=== PATIENT | female | born 1990 | race American Indian/Alaskan Native ===

== ENCOUNTER 2018-11-09 16:57 | Emergency (ER) | payer MEDICAID, OTHER ==
[2018-11-09 17:15] VITALS: BP 109/70
--- NOTE | 2018-11-09 17:45 | Emergency Department Report ---
Blank Doc - Documentation Documentation: 28 y/o female with 3 weeks of abd pain located left lower and pelvic. No n/v/d. Admits to constipation. LMP 11/02/18. .
[2018-11-09 18:05] LABS: Basophils % (Auto) 0.6 % (0.0-1.8); Eosinophils # (Auto) 0.1 K/mm3 (0.0-0.4); Eosinophils % (Auto) 2.3 % (0.0-4.3); Hematocrit 46.2 % (30.3-42.9); Hemoglobin 15.5 gm/dl (10.1-14.3); Lymphocytes # (Auto) 1.7 K/mm3 (1.2-5.4); Lymphocytes % (Auto) 35.3 % (13.4-35.0); Mean Corpuscular HGB Conc 34 % (30-34); Mean Corpuscular Volume 88 fl (79-97); Monocytes # (Auto) 0.5 K/mm3 (0.0-0.8); Monocytes % (Auto) 9.6 % (0.0-7.3); Platelet Count 314 K/mm3 (140-440); Red Blood Count 5.26 M/mm3 (3.65-5.03); Red Cell Distribution Width 13.1 % (13.2-15.2)
[2018-11-09 18:12] LABS: Bilirubin,Urine NEG (Negative); Blood,Urine NEG (Negative); Color,Urine Yellow (Yellow); Mucus,Urine 3+ /HPF; Protein,Urine <15 mg/dL mg/dL (Negative); Urobilinogen,Urine < 2.0 mg/dL (<2.0)
[2018-11-09 18:22] LABS: Alanine Aminotransferase 8 units/L (7-56); Albumin 3.9 g/dL (3.9-5); BUN/Creatinine Ratio 20; Blood Urea Nitrogen 14 mg/dL (7-17); Hemolysis Index 29
[2018-11-09] MEDS ORDERED: NACL 0.9% 1000 ML 1,000 ML IV ONE (19:57)
[2018-11-09] MEDS ORDERED: TORADOL IV ONE (19:57)
[2018-11-09] MEDS ORDERED: ZOFRAN IV ONE (19:57)
--- NOTE | 2018-11-09 21:23 | Emergency Department Report ---
ED Abdominal Pain HPI - General Chief Complaint: Abdominal Pain Stated Complaint: ABD PAIN Time Seen by Provider: 11/09/18 17:29 Source: patient Mode of arrival: Ambulatory Limitations: No Limitations - History of Present Illness Initial Comments: Patient is a 28-year-old -[place] female who presents for generalized abdominal pain 3 weeks last menstrual cycle was 11/02/2018 patient is A0 patient is currently breast-feeding patient has history of ovarian cyst patient describes pain as 4/10 aching, patient has vaginal bleeding at this time no vaginal discharge no shortness of breath, pt postive for nausea,, no vomiting MD Complaint: abdominal pain Onset/Timin -: week(s) Location: LLQ, RLQ Radiation: LLQ, RLQ Severity: moderate Severity scale (0 -10): 2 Quality: aching Consistency: constant Improves With: nothing Worsens With: movement Associated Symptoms: nausea - Related Data LMP Date: 11/02/18 Previous Rx's Medication Instructions Recorded Last Taken Type Docusate Sodium [Colace] 100 mg PO BID PRN #20 capsule 05/03/16 Unknown Rx Docusate Sodium [Colace] 100 mg PO BID PRN #60 capsule 12/08/16 Unknown Rx Ferrous Sulfate [Feosol 325 MG tab] 325 mg PO BID #90 tablet 12/08/16 Unknown Rx Ibuprofen [Motrin 800 MG tab] 800 mg PO Q8HR PRN #30 tablet 12/08/16 Unknown Rx Allergies Allergy/AdvReac Type Severity Reaction Status Date / Time No Known Allergies Allergy Verified 11/09/18 17:00 ED Review of Systems ROS: Stated complaint: ABD PAIN Other details as noted in HPI Constitutional: denies: chills, fever Eyes: denies: eye pain, eye discharge, vision change ENT: denies: ear pain, throat pain Respiratory: denies: cough, shortness of breath, wheezing Cardiovascular: denies: chest pain, palpitations Endocrine: no symptoms reported Gastrointestinal: abdominal pain, nausea. denies: diarrhea Genitourinary: denies: urgency, dysuria, frequency, hematuria, discharge Musculoskeletal: denies: back pain Skin: denies: rash, lesions Neurological: denies: headache, weakness, paresthesias Psychiatric: denies: anxiety, depression Hematological/Lymphatic: denies: easy bleeding, easy bruising ED Past Medical Hx - Past Medical History Previous Medical History?: No Hx Hypertension: No Hx Congestive Heart Failure: No Hx Diabetes: No Hx Deep Vein Thrombosis: No Hx Renal Disease: No Hx Sickle Cell Disease: No Hx Seizures: No Hx Asthma: Yes Hx COPD: No Hx HIV: No Additional medical history: 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, now resolved; no DM - Surgical History Past Surgical History?: No - Social History Smoking Status: Never Smoker - Medications Home Medications: Home Medications Medication Instructions Recorded Confirmed Last Taken Type Docusate Sodium [Colace] 100 mg PO BID PRN #20 capsule 05/03/16 12/08/16 Unknown Rx Docusate Sodium [Colace] 100 mg PO BID PRN #60 capsule 12/08/16 Unknown Rx Ferrous Sulfate [Feosol 325 MG tab] 325 mg PO BID #90 tablet 12/08/16 Unknown Rx Ibuprofen [Motrin 800 MG tab] 800 mg PO Q8HR PRN #30 tablet 12/08/16 Unknown Rx ED Physical Exam - General Limitations: No Limitations General appearance: alert, in no apparent distress - Head Head exam: Present: atraumatic, normocephalic - Eye Eye exam: Present: normal appearance, PERRL, EOMI - ENT ENT exam: Present: mucous membranes moist - Neck Neck exam: Present: normal inspection, full ROM - Respiratory Respiratory exam: Present: normal lung sounds bilaterally. Absent: respiratory distress, wheezes, stridor, chest wall tenderness - Cardiovascular Cardiovascular Exam: Present: regular rate, normal rhythm, normal heart sounds. Absent: systolic murmur, diastolic murmur, rubs, gallop - GI/Abdominal GI/Abdominal exam: Present: tenderness (LLQ, RLQ ), normal bowel sounds. Absent: guarding, rebound, rigid, bruit, hernia - Rectal Rectal exam: Present: deferred - Extremities Exam Extremities exam: Present: normal inspection, full ROM - Back Exam Back exam: Present: normal inspection, full ROM. Absent: tenderness, CVA tenderness (R), CVA tenderness (L), muscle spasm, rash noted - Neurological Exam Neurological exam: Present: alert, oriented X3, CN II-XII intact, normal gait - Psychiatric Psychiatric exam: Present: normal affect, normal mood - Skin Skin exam: Present: warm, dry, intact, normal color. Absent: rash ED Course Vital Signs 11/09/18 17:14 Temperature 98.4 F Pulse Rate 85 Respiratory 18 Rate Blood Pressure 109/70 O2 Sat by Pulse 99 Oximetry ED Medical Decision Making - Lab Data Result diagrams: 11/09/18 17:49 11/09/18 17:49 Labs 11/09/18 11/09/18 11/09/18 17:49 17:49 Unknown WBC 4.7 RBC 5.26 H Hgb 15.5 H Hct 46.2 H MCV 88 MCH 29 MCHC 34 RDW 13.1 L Plt Count 314 Lymph % (Auto) 35.3 H [place] % (Auto) 9.6 H Eos % (Auto) 2.3 Baso % (Auto) 0.6 Lymph # 1.7 [place] # 0.5 Eos # 0.1 Baso # 0.0 Seg Neutrophils % 52.2 Seg Neutrophils # 2.5 Sodium 144 Potassium 4.9 Chloride 108.9 H Carbon Dioxide 25 Anion Gap 15 BUN 14 Creatinine 0.7 Estimated GFR > 60 BUN/Creatinine Ratio 20 Glucose 78 Calcium 10.0 Total Bilirubin 0.30 AST 20 ALT 8 Alkaline Phosphatase 256 H Total Protein 7.2 Albumin 3.9 Albumin/Globulin Ratio 1.2 Urine Color Yellow Urine Turbidity Clear Urine pH 6.0 Ur Specific [place] 1.028 Urine Protein <15 mg/dl Urine Glucose (UA) Neg Urine Ketones 80 Urine Blood Neg Urine Nitrite Neg Urine Bilirubin Neg Urine Urobilinogen < 2.0 Ur Leukocyte Esterase Tr Urine WBC (Auto) 1.0 Urine RBC (Auto) 4.0 U Epithel Cells (Auto) 1.0 Urine Mucus 3+ hcg is negative - Medical Decision Making pt is currently tolerating po intake, there is no fever on chills no vaginal bleeding no discharge, pt refuses labs, ua: normal, HCG: negative, ct abd & pelvis- pt refuses. pt appears well nontoxic with nad, pt has eloped at this time , pt paged overhead x 3 no answer, called no answer unable to leave message, disposition is undetermined at this time. Critical care attestation.: If time is entered above; I have spent that time in minutes in the direct care of this critically ill patient, excluding procedure time. ED Disposition Clinical Impression: Abdominal pain Qualifiers: Abdominal location: lower abdomen, unspecified Qualified Code(s): R10.30 - Lower abdominal pain, unspecified Disposition: ELOPED Is pt being admited?: No Does the pt Need Aspirin: No Condition: Undetermined Instructions: Abdominal Pain (ED) Referrals: TABITHA PHAM MD [Staff Physician] - 3-5 Days Time of Disposition: 22:15
[2018-11-09 21:43] LABS: HCG Qualitative,Urine Negative (Negative)
== END 2018-11-09 22:06 | disposition left against medical advice (07) ==
LOC: ED 16:57
DX: R10.32 Left lower quadrant pain (principal); R10.31 Right lower quadrant pain; J45.909 Unspecified asthma, uncomplicated
CPT/HCPCS: 36415; 80053; 81001; 81025; 85025; 99283; J7030; J1885; J2405

== ENCOUNTER 2019-06-17 23:02 | Emergency (ER) | payer MEDICAID, OTHER ==
[2019-06-17 23:10] VITALS: BP 108/53
--- NOTE | 2019-06-18 02:45 | Emergency Department Report ---
ED General Adult HPI - General Chief complaint: Sore Throat Stated complaint: LUMP IN THROAT Source: patient Mode of arrival: Ambulatory Limitations: No Limitations - History of Present Illness Initial comments: Patient is a 28-year-old -[place] female with no past medical history who presents to the ED with acute onset persistent sore throat with swollen painful cervical lymph nodes for the last 2 days. Patient states that in the last 6 hours she has not been able to swallow much because of severe pain. Patient denies fever, chills, cough, nausea and vomiting, nasal and sinus congestion, dizziness, dysphagia, dysphonia, change in vision or chest pain and abdominal pain. MD Complaint: sore throat; painful swollen lymph cervical nodes -: Sudden, days(s) (2) Location: mouth Radiation: non-radiation Severity scale (0 -10): 4 Quality: aching Consistency: constant Improves with: none Worsens with: none Associated Symptoms: denies other symptoms. denies: confusion, chest pain, cough, diaphoresis, fever/chills, headaches, loss of appetite, malaise, nausea/vomiting, shortness of breath, syncope, weakness, other Treatments Prior to Arrival: none - Related Data Previous Rx's Medication Instructions Recorded Last Taken Type Docusate Sodium [Colace] 100 mg PO BID PRN #20 capsule 05/03/16 Unknown Rx Docusate Sodium [Colace] 100 mg PO BID PRN #60 capsule 12/08/16 Unknown Rx Ferrous Sulfate [Feosol 325 MG tab] 325 mg PO BID #90 tablet 12/08/16 Unknown Rx Ibuprofen [Motrin 800 MG tab] 800 mg PO Q8HR PRN #30 tablet 12/08/16 Unknown Rx Azithromycin [Zithromax Z-MAYA] 250 mg PO DAILY #6 tablet 06/18/19 Unknown Rx Ibuprofen [Motrin] 600 mg PO Q8H PRN #20 tablet 06/18/19 Unknown Rx Lidocaine Viscous 2% 10 ml PO Q6H PRN #120 ml 06/18/19 Unknown Rx methylPREDNISolone [Medrol 4MG 4 mg PO DAILY #21 tab.ds.pk 06/18/19 Unknown Rx DOSEPAK (21 tabs)] Allergies Allergy/AdvReac Type Severity Reaction Status Date / Time No Known Allergies Allergy Verified 11/09/18 17:00 ED Review of Systems ROS: Stated complaint: LUMP IN THROAT Other details as noted in HPI Constitutional: denies: chills, fever Eyes: denies: eye pain, eye discharge, vision change ENT: throat pain. denies: ear pain Respiratory: denies: cough, shortness of breath, wheezing Cardiovascular: denies: chest pain, palpitations Endocrine: no symptoms reported Gastrointestinal: denies: abdominal pain, nausea, diarrhea Genitourinary: denies: urgency, dysuria, discharge Musculoskeletal: denies: back pain, joint swelling, arthralgia Skin: denies: rash, lesions Neurological: denies: headache, weakness, paresthesias Psychiatric: denies: anxiety, depression Hematological/Lymphatic: denies: easy bleeding, easy bruising ED Past Medical Hx - Past Medical History Previous Medical History?: Yes Hx Hypertension: No Hx Congestive Heart Failure: No Hx Diabetes: No Hx Deep Vein Thrombosis: No Hx Renal Disease: No Hx Sickle Cell Disease: No Hx Seizures: No Hx Asthma: Yes Hx COPD: No Hx HIV: No Additional medical history: 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, now resolved; no DM - Surgical History Past Surgical History?: No - Social History Smoking Status: Never Smoker Substance Use Type: None - Medications Home Medications: Home Medications Medication Instructions Recorded Confirmed Last Taken Type Docusate Sodium [Colace] 100 mg PO BID PRN #20 capsule 05/03/16 12/08/16 Unknown Rx Docusate Sodium [Colace] 100 mg PO BID PRN #60 capsule 12/08/16 Unknown Rx Ferrous Sulfate [Feosol 325 MG tab] 325 mg PO BID #90 tablet 12/08/16 Unknown Rx Ibuprofen [Motrin 800 MG tab] 800 mg PO Q8HR PRN #30 tablet 12/08/16 Unknown Rx Azithromycin [Zithromax Z-MAYA] 250 mg PO DAILY #6 tablet 06/18/19 Unknown Rx Ibuprofen [Motrin] 600 mg PO Q8H PRN #20 tablet 06/18/19 Unknown Rx Lidocaine Viscous 2% 10 ml PO Q6H PRN #120 ml 06/18/19 Unknown Rx methylPREDNISolone [Medrol 4MG 4 mg PO DAILY #21 tab.ds.pk 06/18/19 Unknown Rx DOSEPAK (21 tabs)] ED Physical Exam - General Limitations: No Limitations General appearance: alert, in no apparent distress - Head Head exam: Present: atraumatic, normocephalic, normal inspection - Eye Eye exam: Present: normal appearance, PERRL, EOMI. Absent: scleral icterus, nystagmus, periorbital swelling, periorbital tenderness Pupils: Present: normal accommodation - ENT ENT exam: Present: normal exam, mucous membranes moist, TM's normal bilaterally, normal external ear exam, other (mildly erythematous oropharynx) - Neck Neck exam: Present: normal inspection, full ROM, lymphadenopathy (palpable anterior left cervical lymphadenopathy) - Respiratory Respiratory exam: Present: normal lung sounds bilaterally. Absent: respiratory distress, wheezes, rales, rhonchi, chest wall tenderness, accessory muscle use, decreased breath sounds, prolonged expiratory - Cardiovascular Cardiovascular Exam: Present: regular rate, normal rhythm, normal heart sounds. Absent: systolic murmur, diastolic murmur, rubs, gallop - GI/Abdominal GI/Abdominal exam: Present: soft, normal bowel sounds. Absent: tenderness, guarding, rebound, hyperactive bowel sounds, hypoactive bowel sounds, organomegaly - Extremities Exam Extremities exam: Present: normal inspection, full ROM, normal capillary refill - Back Exam Back exam: Present: normal inspection, full ROM - Neurological Exam Neurological exam: Present: alert, oriented X3, CN II-XII intact, normal gait, reflexes normal - Psychiatric Psychiatric exam: Present: normal affect, normal mood - Skin Skin exam: Present: warm, dry, intact, normal color. Absent: rash ED Course Vital Signs 06/17/19 06/18/19 23:08 02:53 Temperature 98.3 F Pulse Rate 69 72 Respiratory 18 17 Rate Blood Pressure 108/53 O2 Sat by Pulse 98 100 Oximetry ED Medical Decision Making - Medical Decision Making Patient is a 28-year-old female who presented to the ED with complaint of sore throat and painful until cervical lymphadenopathy. In the ED, patient is alert and oriented 3 and is not in distress with normal vital signs. Patient was discharged home on medications based on the physical exam findings of oropharyngeal erythema and palpable cervical lymphadenopathy. Patient was advised to follow-up with her primary care physician in 7-10 days for reevaluation or return to the ED immediately if symptoms get worse. - Differential Diagnosis pharyngitis; lymphadenopathy; URI; Rhinitis Critical care attestation.: If time is entered above; I have spent that time in minutes in the direct care of this critically ill patient, excluding procedure time. ED Disposition Clinical Impression: Reactive cervical lymphadenopathy Acute pharyngitis Qualifiers: Pharyngitis/tonsillitis etiology: other specified organisms Qualified Code(s): J02.8 - Acute pharyngitis due to other specified organisms Disposition: TO HOME OR SELFCARE Is pt being admited?: No Does the pt Need Aspirin: No Condition: Stable Instructions: Pharyngitis (ED), Lymphadenopathy (ED) Additional Instructions: Take medication with food, drink plenty of fluids and follow-up with your primary care physician in 5-7 days for reevaluation. Return to the ED immediately if symptoms get worse Prescriptions: Lidocaine Viscous 2% 10 ml PO Q6H PRN #120 ml PRN Reason: Pain , Severe (7-10) methylPREDNISolone [Medrol 4MG DOSEPAK (21 tabs)] 4 mg PO DAILY #21 tab.ds.pk Ibuprofen [Motrin] 600 mg PO Q8H PRN #20 tablet PRN Reason: Pain Azithromycin [Zithromax Z-MAYA] 250 mg PO DAILY #6 tablet Referrals: [facility] [Outside] - 3-5 Days Time of Disposition: 02:42 Print Language: SETSWANA
== END 2019-06-18 02:52 | disposition home or self-care (01) ==
LOC: ED 23:02
DX: J02.8 Acute pharyngitis due to other specified organisms (principal); R59.0 Localized enlarged lymph nodes; J45.909 Unspecified asthma, uncomplicated; Z79.899 Other long term (current) drug therapy
CPT/HCPCS: 99282